=== PATIENT | male | born 1965 | race Caucasian/White ===

== ENCOUNTER → 2018-04-07 | Outpatient (CLI) | payer OTHER ==
[~2018-04-07] MED LIST: AMOX-559 PO; ASPI-1471 PO; ATOR10TA24 PO; DIGO0.12; FURO20TA19 PO; LISI-362 PO; METO25TA93 PO; WARF10TA28 PO
[2018-04-07 15:18] LABS: INR 1.33
== END ==
LOC: LAB 14:54
PROVIDERS: ATTEND Internal Medicine Cardiovascular Disease
DX: I51.3 Intracardiac thrombosis, not elsewhere classified (principal)
CPT/HCPCS: 36415; 85610